=== PATIENT | male | born 1965 | race Two or more races ===

== ENCOUNTER → 2024-10-30 | Emergency (ER) | payer OTHER ==
[~2024-10-30] VITALS: Ht 193 cm; Wt 104.3 kg
[~2024-10-30] MED LIST: CEFTRIAXONE SODIUM 1,000 MG VIAL IM ONE; CEFTRIAXONE SODIUM 1,000 MG VIAL ONE; KETOROLAC TROMETHAMINE 60 MG VIAL IM ONE
[2024-10-30 14:16] LABS: BASO % 0.5 % (0.1-1.2); EOS # 0.33 (0.04-0.54); EOS % 3.6 % (0.7-7.0); HEMATOCRIT 44.2 % (40.1-51.0); HEMOGLOBIN 14.7 g/dL (13.7-17.5); LYMPH # 2.48 (1.18-3.74); LYMPH % 27.3 % (19.3-53.1); MEAN CORPUSCULAR HEMOGLOBIN 27.9 pg (25.6-32.2); MONO # 0.64 (0.24-0.82); NEUT # 5.59 (1.56-6.13); NEUT % 61.5 % (34.0-71.1); PLATELET COUNT 194 K/uL (163-369); RED BLOOD COUNT 5.26 M/uL (4.63-6.08)
== END | disposition home or self-care (01) ==
LOC: ER 10:58
PROVIDERS: General Practice
DX: L08.9 Local infection of the skin and subcutaneous tissue, unspecified (principal); M77.31 Calcaneal spur, right foot